=== PATIENT | male | born 2000 | race Asian ===

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

== ENCOUNTER 2021-07-18 13:42 | Emergency (ER) | payer SELFPAY ==
--- NOTE | 2021-07-18 15:26 | RAD REPORT ---
EXAM DESCRIPTION: RAD - Ankle Left 2 View - 07/18/2021 3:21 pm CLINICAL HISTORY: PAIN COMPARISON: Ankle Left 3 View dated 04/17/2016 FINDINGS: Moderate soft tissue swelling is seen along the lateral malleolus. A tiny bony avulsion fr agment is suspected inferior to the lateral malleolus. No dislocation.
--- NOTE | 2021-07-18 15:54 | EDPHYS ---
Physician Documentation [facility] Name: Farzad Thompson Age: 21 yrs Sex: Male : 2000 Arrival Date: 07/18/2021 Time: 13:44 Bed 11 Private MD: ED Physician Nelson Gresham HPI: 07/18 15:20 This 21 yrs old Male presents to ER via Wheelchair with complaints of Ankle jr8 Injury. 15:20 Onset: The symptoms/episode began/occurred acutely, today. Associated signs and jr8 symptoms: The patient has no apparent associated signs or symptoms. Modifying factors: The symptoms are alleviated by nothing, the symptoms are aggravated by weight bearing, movement. Severity of symptoms: At their worst the symptoms were moderate, in the emergency department the symptoms are unchanged. The patient has not experienced similar symptoms in the past. The patient has not recently seen a physician. Patient stated that he was running and jumped. Caused him to roll his left ankle. Had immediate swelling and bruising post incident . Historical: - Allergies: 14:17 No Known Allergies; ld1 - Home Meds: 14:17 None [Active]; ld1 - PMHx: 14:17 None; ld1 - PSHx: 14:17 None; ld1 - Immunization history:: Adult Immunizations up to date, Client reports having NOT received the Covid vaccine. - Social history:: Smoking status: Patient denies any tobacco usage or history of. Patient uses alcohol, but reports only rare drinking. street drugs, marijuana. ROS: 15:20 Eyes: Negative for injury, pain, redness, and discharge, ENT: Negative for injury, jr8 pain, and discharge, Neck: Negative for injury, pain, and swelling, Cardiovascular: Negative for chest pain, palpitations, and edema, Respiratory: Negative for shortness of breath, cough, wheezing, and pleuritic chest pain, Abdomen/GI: Negative for abdominal pain, nausea, vomiting, diarrhea, and constipation, Back: Negative for injury and pain, Skin: Negative for injury, rash, and discoloration, Neuro: Negative for headache, weakness, numbness, tingling, and seizure. 15:20 MS/extremity: Positive for decreased range of motion, ecchymosis, pain, swelling, tenderness, of the left lateral ankle. Exam: 15:20 Constitutional: This is a well developed, well nourished patient who is awake, alert, jr8 and in no acute distress. Cardiovascular: Regular rate and rhythm with a normal S1 and S2. No gallops, murmurs, or rubs. Normal PMI, no JVD. No pulse deficits. Respiratory: Lungs have equal breath sounds bilaterally, clear to auscultation and percussion. No rales, rhonchi or wheezes noted. No increased work of breathing, no retractions or nasal flaring. Skin: Warm, dry with normal turgor. Normal color with no rashes, no lesions, and no evidence of cellulitis. Neuro: Awake and alert, GCS 15, oriented to person, place, time, and situation. Cranial nerves II-XII grossly intact. Motor strength 5/5 in all extremities. Sensory grossly intact. 15:20 Musculoskeletal/extremity: Extremities: grossly normal except: noted in the left ankle: Patient has swelling, bruising, and tenderness to the lateral malleolus of his left ankle. Pain with ROM present. Decreased flexion and extension present secondary to pain. Sensation intact with 2+ radial pulses present. Remained of extremities unremarkable . Vital Signs: 14:16 BP 112 / 73; Pulse 69; Resp 18; Temp 98.6(O); Pulse Ox 98% on R/A; Weight 88.45 kg; ld1 Height 6 ft. 3 in. (190.50 cm); Pain 9/10; 16:20 BP 112 / 73; Pulse 69; Resp 18; ll1 14:16 Body Mass Index 24.37 (88.45 kg, 190.50 cm) ld1 Procedures: 15:52 Splinting: Splint applied to left leg using Ortho 3D boot, applied by nurse. Examined jr8 by me, post splint application: neurovascular intact, 2+ distal pulses palpable, brisk capillary refill noted, Patient tolerated well. Crutch training provided to patient and/or family. Return demonstration given. MDM: 15:06 Patient medically screened. jr8 15:52 Data reviewed: vital signs, nurses notes, radiologic studies, plain films. Data jr8 interpreted: Pulse oximetry: on room air is 98 %. Interpretation: normal. Counseling: I had a detailed discussion with the patient and/or guardian regarding: the historical points, exam findings, and any diagnostic results supporting the discharge/admit diagnosis, radiology results, the need for outpatient follow up, a orthopedic surgeon, to return to the emergency department if symptoms worsen or persist or if there are any questions or concerns that arise at home. 07/18 14:16 Order name: XRAY Ankle LEFT 2 view; Complete Time: 15:30 ld1 07/18 15:31 Order name: Misc. Order: Ortho Boot with crutches; Complete Time: 16:09 jr8 07/18 15:52 Order name: Crutches; Complete Time: 16:09 jr8 Administered Medications: No medications were administered Disposition: 17:35 Co-signature as Attending Physician, Nelson Gresham MD I agree with the assessment and rn plan of care. Attestation: The patient's history, exam findings, diagnostics, and a summary of any interventions or procedures was reviewed in detail with Axel FLORES. Disposition Summary: 07/18/21 15:53 Discharge Ordered Location: Home jr8 Problem: new jr8 Symptoms: have improved jr8 Condition: Stable jr8 Diagnosis - Sprain of ankle jr8 - Avulsion fracture lateral malleolus jr8 Followup: jr8 - With: Adam Dumont MD - When: 5 - 6 days - Reason: Recheck today's complaints, Continuance of care, Re-evaluation by your physician Discharge Instructions: - Discharge Summary Sheet jr8 - Ankle Fracture jr8 - Ankle Sprain jr8 Forms: - Medication Reconciliation Form jr8 - Thank You Letter jr8 - Antibiotic Education jr8 - Prescription Opioid Use jr8 Signatures: Dispatcher [employer] EDMS Nelson Gresham MD MD rn Roszak, Josh, PA PA jr8 Barb Rodriguez RN RN ld1 Corrections: (The following items were deleted from the chart) 14:18 14:17 Allergies: Aspirin; ld1 ld1
--- NOTE | 2021-07-18 15:54 | ER ---
Nurse's Notes [facility] Name: Farzad Thompson Age: 21 yrs Sex: Male : 2000 Arrival Date: 07/18/2021 Time: 13:44 Bed 11 Private MD: Diagnosis: Sprain of ankle;Avulsion fracture lateral malleolus Presentation: 07/18 14:16 Chief complaint: Patient states: I was running up my driveway last night, I rolled my ld1 left ankle. I heard a loud pop. Coronavirus screen: At this time, the client does not indicate any symptoms associated with coronavirus-19. Ebola Screen: No symptoms or risks identified at this time. Initial Sepsis Screen: Does the patient meet any 2 criteria? No. Patient's initial sepsis screen is negative. Does the patient have a suspected source of infection? No. Patient's initial sepsis screen is negative. Risk Assessment: Do you want to hurt yourself or someone else? Patient reports no desire to harm self or others. 14:16 Method Of Arrival: Wheelchair ld1 14:16 Acuity: MONCHO 4 ld1 14:16 Onset of symptoms was July 18, 2021. ld1 Triage Assessment: 14:17 General: Appears in no apparent distress. comfortable, Behavior is calm, cooperative, ld1 appropriate for age. Pain: Complains of pain in left lateral ankle, left Achilles, left medial ankle and anterior aspect of left ankle Pain does not radiate. Pain currently is 8 out of 10 on a pain scale. Quality of pain is described as throbbing, Pain began 1 day ago. Is continuous. EENT: No deficits noted. Neuro: Level of Consciousness is awake, alert, obeys commands, Oriented to person, place, time, situation, Appropriate for age. Cardiovascular: Capillary refill < 3 seconds Patient's skin is warm and dry. Respiratory: Airway is patent Respiratory effort is even, unlabored, Respiratory pattern is regular, symmetrical. GI: Abdomen is flat, non-distended. : No signs and/or symptoms were reported regarding the genitourinary system. Derm: No signs and/or symptoms reported regarding the dermatologic system. Musculoskeletal: Reports pain in left lateral ankle, left Achilles, left medial ankle and anterior aspect of left ankle. Historical: - Allergies: 14:17 No Known Allergies; ld1 - Home Meds: 14:17 None [Active]; ld1 - PMHx: 14:17 None; ld1 - PSHx: 14:17 None; ld1 - Immunization history:: Adult Immunizations up to date, Client reports having NOT received the Covid vaccine. - Social history:: Smoking status: Patient denies any tobacco usage or history of. Patient uses alcohol, but reports only rare drinking. street drugs, marijuana. Screenin:10 Abuse screen: Denies threats or abuse. Nutritional screening: No deficits noted. ll1 Tuberculosis screening: No symptoms or risk factors identified. Fall Risk Fall in past 12 months (25 points). Gait- Impaired (20 pts.). Total Ahumada Fall Scale indicates High Risk Score (45 or more points). Fall prevention measures have been instituted. Side Rails Up X 2 Placed Close to Nursing Station Frequent Obs/Assessments Occuring As available patient and family educated on Fall Prevention Program and Strategies. Assessment: 15:10 Reassessment: No changes from previously documented assessment. Patient and/or family ll1 updated on plan of care and expected duration. Pain level reassessed. Patient is alert, oriented x 3, equal unlabored respirations, skin warm/dry/pink. 16:10 Reassessment: No changes from previously documented assessment. Patient and/or family ll1 updated on plan of care and expected duration. Pain level reassessed. Patient is alert, oriented x 3, equal unlabored respirations, skin warm/dry/pink. Vital Signs: 14:16 BP 112 / 73; Pulse 69; Resp 18; Temp 98.6(O); Pulse Ox 98% on R/A; Weight 88.45 kg; ld1 Height 6 ft. 3 in. (190.50 cm); Pain 9/10; 16:20 BP 112 / 73; Pulse 69; Resp 18; ll1 14:16 Body Mass Index 24.37 (88.45 kg, 190.50 cm) ld1 ED Course: 13:44 Patient arrived in ED. ds1 14:17 Triage completed. ld1 14:17 Arm band placed on right wrist. ld1 15:06 Axel Badillo PA is PHCP. jr8 15:06 Nelson Gresham MD is Attending Physician. jr8 15:10 Ghada Rodriguez RN is Primary Nurse. ll1 15:10 Patient placed in an exam room, on a stretcher. ll1 15:10 Patient has correct armband on for positive identification. Bed in low position. Call ll1 light in reach. Side rails up X 1. Cardiac monitoring not applicable on this patient. 15:20 XRAY Ankle LEFT 2 view In Process Unspecified. EDDC 15:52 Adam Dumont MD is Referral Physician. jr8 16:20 No provider procedures requiring assistance completed. Patient did not have IV access ll1 during this emergency room visit. Administered Medications: No medications were administered Outcome: 15:53 Discharge ordered by MD. jr8 16:20 Patient left the ED. ll1 16:20 Discharged to home ambulatory. ll1 16:20 Condition: stable 16:20 Discharge instructions given to patient, Instructed on discharge instructions, follow up and referral plans. crutch walking, Demonstrated understanding of instructions, follow-up care, crutch walking. Signatures: Dispatcher [employer] [facility] MujicaIsabella 1 Axel Badillo PA PA jr8 Ghada Rodriguez, ERIKA RN ll1 Barb Rodriguez RN RN ld1 Corrections: (The following items were deleted from the chart) 14:18 14:17 Allergies: Aspirin; ld1 ld1 16:33 16:32 BP 112 / 73; Pulse 69bpm; Resp 18bpm; ll1 ll1
[2021-07-18 16:32] VITALS: BP 112/73; TEMP 98.6; O2SAT 98
== END 2021-07-18 16:20 | disposition home or self-care (01) ==
LOC: ER 13:42
DX: S82.62XA Displaced fracture of lateral malleolus of left fibula, initial encounter for closed fracture (principal); S93.402A Sprain of unspecified ligament of left ankle, initial encounter; X58.XXXA Exposure to other specified factors, initial encounter; Y93.02 Activity, running
CPT/HCPCS: 99283

== ENCOUNTER 2021-08-06 20:36 | Emergency (ER) | payer SELFPAY ==
[2021-08-06] MEDS ORDERED: NA CHLORIDE 0.9% 1,000 ML ONE (20:55)
[2021-08-06 21:13] LABS: Urine Blood Negative (Negative); Urine Glucose Negative (Negative); Urine Protein Negative (Negative); Urine Specific Gravity >=1.030 (1.005-1.030)
[2021-08-06] MEDS ORDERED: NA CHLORIDE 0.9% 50 ML ONE (21:17)
[2021-08-06] MEDS ORDERED: THIAMINE 200 MG/2 ML INJ ONE (21:17)
[2021-08-06 21:33] LABS: Absolute Lymphocytes (CBC) 2.3 K/uL (0.7-4.9); Basophils % 0.4 % (0-1.3); Hematocrit 41.8 % (39.6-49.0); Lymphocytes % 42.1 % (15.3-44.8); MPV 8.1 fL (7.6-11.3); RBC Red Blood Cell Count 4.91 M/uL (4.33-5.43)
[2021-08-06 21:52] LABS: ALT/SGPT 70 U/L (12-78); AST/SGOT 29 U/L (15-37); Albumin 4.2 g/dL (3.4-5.0); Alkaline Phosphatase 50 U/L (45-117); BUN Blood Urea Nitrogen 13 mg/dL (7-18); Bicarbonate 33 mmol/L (21-32); Bilirubin Direct 0.2 mg/dL (0-0.2); Bilirubin Total 0.7 mg/dL (0.2-1.0); Glucose Level 112 mg/dL (74-106); Potassium 3.5 mmol/L (3.5-5.1); Protein, Total 7.7 g/dL (6.4-8.2); Sodium Level 143 mmol/L (136-145)
[2021-08-06 22:42] LABS: Benzodiazepines POSITIVE (NEGATIVE); Cocaine NEGATIVE (NEGATIVE); METHAMPHETAM NEGATIVE (NEGATIVE); Opiates NEGATIVE (NEGATIVE); Phencyclidine NEGATIVE (NEGATIVE); THC Cannibis POSITIVE (NEGATIVE)
[2021-08-06 22:43] LABS: Barbiturates NEGATIVE (NEGATIVE); Methadone NEGATIVE (NEGATIVE)
--- NOTE | 2021-08-07 00:37 | EDPHYS ---
Physician Documentation [facility] Name: Farzad Thompson Age: 21 yrs Sex: Male : 2000 Arrival Date: 08/06/2021 Time: 20:38 Bed 3 Private MD: ED Physician Joshua Cooper HPI: 08/06 20:55 This 21 yrs old Male presents to ER via Ambulatory with complaints of ams from fatuma oxycodone and bars. 20:55 ams, slurred speech. The patient presents with confusion, decreased mental status. fatuma Onset: The symptoms/episode began/occurred just prior to arrival. Possible causes: drug use, benzodiazepines, narcotics. Associated signs and symptoms: Pertinent positives: confusion. Onset: The symptoms/episode began/occurred today. Current symptoms: In the emergency department the patient's symptoms are unchanged from the initial presentation. Patient's baseline: Neuro: alert and fully oriented. Historical: - Allergies: 20:42 No Known Allergies; da3 - PMHx: 20:42 None; da3 - Immunization history:: Client reports having NOT received the Covid vaccine. - Social history:: Smoking status: unknown. - Family history:: not pertinent. ROS: 20:55 Constitutional: Negative for fever, chills, and weight loss, Eyes: Negative for injury, fatuma pain, redness, and discharge, ENT: Negative for injury, pain, and discharge, Neck: Negative for injury, pain, and swelling, Cardiovascular: Negative for chest pain, palpitations, and edema, Respiratory: Negative for shortness of breath, cough, wheezing, and pleuritic chest pain, Abdomen/GI: Negative for abdominal pain, nausea, vomiting, diarrhea, and constipation, Back: Negative for injury and pain, : Negative for injury, bleeding, discharge, and swelling, MS/Extremity: Negative for injury and deformity, Skin: Negative for injury, rash, and discoloration, Psych: Negative for depression, anxiety, suicide ideation, homicidal ideation, and hallucinations, Allergy/Immunology: Negative for hives, rash, and allergies, Endocrine: Negative for neck swelling, polydipsia, polyuria, polyphagia, and marked weight changes, Hematologic/Lymphatic: Negative for swollen nodes, abnormal bleeding, and unusual bruising. 20:55 Neuro: Positive for altered mental status, speech changes, weakness. Exam: 20:55 Constitutional: This is a well developed, well nourished patient who is awake, alert, fatuma and in no acute distress. Head/Face: Normocephalic, atraumatic. Eyes: Pupils equal round and reactive to light, extra-ocular motions intact. Lids and lashes normal. Conjunctiva and sclera are non-icteric and not injected. Cornea within normal limits. Periorbital areas with no swelling, redness, or edema. ENT: Nares patent. No nasal discharge, no septal abnormalities noted. Tympanic membranes are normal and external auditory canals are clear. Oropharynx with no redness, swelling, or masses, exudates, or evidence of obstruction, uvula midline. Mucous membranes moist. Neck: Trachea midline, no thyromegaly or masses palpated, and no cervical lymphadenopathy. Supple, full range of motion without nuchal rigidity, or vertebral point tenderness. No Meningismus. Chest/axilla: Normal chest wall appearance and motion. Nontender with no deformity. No lesions are appreciated. Cardiovascular: Regular rate and rhythm with a normal S1 and S2. No gallops, murmurs, or rubs. Normal PMI, no JVD. No pulse deficits. Respiratory: Lungs have equal breath sounds bilaterally, clear to auscultation and percussion. No rales, rhonchi or wheezes noted. No increased work of breathing, no retractions or nasal flaring. Abdomen/GI: Soft, non-tender, with normal bowel sounds. No distension or tympany. No guarding or rebound. No evidence of tenderness throughout. Back: No spinal tenderness. No costovertebral tenderness. Full range of motion. Skin: Warm, dry with normal turgor. Normal color with no rashes, no lesions, and no evidence of cellulitis. MS/ Extremity: Pulses equal, no cyanosis. Neurovascular intact. Full, normal range of motion. Psych: Awake, alert, with orientation to person, place and time. Behavior, mood, and affect are within normal limits. 20:55 Neuro: Orientation: to person, place, Not oriented to time, situation, Mentation: slow to respond, confused, Memory: unable to test, Cranial nerves: is grossly normal based on the patient's age, Cerebellar function: unable to test, Motor: moves all fours, unable to test, Sensation: no obvious gross deficits, Gait: not tested. Deep tendon reflexes are 2+ (normal) in the bilateral brachioradialis, bicep, tricep and patellar and Achilles tendons, seizure activity, is not displayed by the patient. 21:02 ECG was reviewed by the Attending Physician. fatuma Vital Signs: 20:38 BP 109 / 72; Pulse 83; Resp 16; Temp 98; Pulse Ox 95% on R/A; Weight 74.84 kg; Height 6 da3 ft. 3 in. (190.50 cm); 21:09 BP 130 / 92; Pulse 75; Resp 26; Pulse Ox 99% on R/A; tw5 21:59 BP 98 / 62; Pulse 81; Resp 22; Pulse Ox 97% on R/A; tw5 22:30 BP 114 / 68; Pulse 75; Resp 22; Pulse Ox 99% on R/A; lp1 23:32 BP 114 / 56; Pulse 62; Resp 22; Pulse Ox 99% on R/A; lp1 08/07 00:41 BP 136 / 67; Pulse 52; Resp 13; Pulse Ox 100% on R/A; tw5 01:53 BP 126 / 71; Pulse 77; Resp 20; Pulse Ox 100% on R/A; lp1 08/06 20:38 Body Mass Index 20.62 (74.84 kg, 190.50 cm) da3 Carmen Coma Score: 01:54 Eye Response: spontaneous(4). Verbal Response: oriented(5). Motor Response: obeys lp1 commands(6). Total: 15. MDM: 08/06 20:48 Patient medically screened. fatuma 20:58 Differential Diagnosis altered mental status. Differential Diagnosis: hypoglycemia, fatuma overdose, volume depletion. Data reviewed: vital signs, nurses notes, lab test result(s), EKG. Data interpreted: monitor car operator: rate is 83 beats/min, rhythm is regular, Pulse oximetry: on room air is 95 %. Test interpretation: by ED physician or midlevel provider: ECG. Counseling: I had a detailed discussion with the patient and/or guardian regarding: the historical points, exam findings, and any diagnostic results supporting the discharge/admit diagnosis, lab results. 08/06 20:49 Order name: Acetaminophen; Complete Time: 22:12 fatuma 08/06 20:49 Order name: Basic Metabolic Panel; Complete Time: 22:12 fatuma 08/06 20:49 Order name: CBC with Diff; Complete Time: 22:12 [facility] 08/06 20:49 Order name: ETOH Level; Complete Time: 23:26 [facility] 08/06 20:49 Order name: Hepatic Function; Complete Time: 22:12 [facility] 08/06 20:49 Order name: PT-INR; Complete Time: 21:55 [facility] 08/06 20:49 Order name: Ptt, Activated; Complete Time: 21:55 [facility] 08/06 20:49 Order name: Salicylate; Complete Time: 22:12 [facility] 08/06 20:49 Order name: Urine Drug Screen; Complete Time: 23:26 [facility] 08/06 21:13 Order name: Urine Dipstick-Ancillary; Complete Time: 21:55 [facility] 08/06 21:42 Order name: Glucose, Ancillary Testing; Complete Time: 21:55 [facility] 08/07 00:38 Order name: COVID-19 SARS RT PCR (Document "Date of Onset" if Symptomatic) [facility] 08/06 20:49 Order name: EKG; Complete Time: 20:50 [facility] 08/06 20:49 Order name: EKG - Nurse/Tech; Complete Time: 20:58 [facility] 08/06 20:49 Order name: IV Saline Lock; Complete Time: 20:58 [facility] 08/06 20:49 Order name: Labs collected and sent; Complete Time: 20:58 [facility] 08/06 20:49 Order name: Suicide Screening ([place]); Complete Time: 21:27 [facility] 08/06 20:49 Order name: Urine Dipstick-Ancillary (obtain specimen); Complete Time: 21:12 [facility] 08/06 21:00 Order name: Blood Glucose Level; Complete Time: 21:33 [facility] 08/06 21:00 Order name: Seizure Precautions; Complete Time: 21:12 [facility] 08/07 00:51 Order name: CONS Physician Consult EDMS EC:02 Rate is 70 beats/min. Rhythm is regular. QRS [place] is Normal. [place] interval is normal. QRS fatuma interval is normal. QT interval is normal. No Q waves. T waves are Normal. No ST changes noted. Clinical impression: Normal ECG and No evidence of ischemia. Interpreted by me. Reviewed by me. Administered Medications: 20:58 Drug: NS 0.9% 1000 ml Route: IV; Rate: 1 bolus; Site: right antecubital; 1 08/07 00:42 Follow up: Response: No adverse reaction; IV Status: Completed infusion tw5 08/06 21:18 Drug: Thiamine 100 mg Route: IV; Rate: per protocol; Site: right antecubital; tw5 08/07 00:42 Follow up: Response: No adverse reaction; IV Status: Completed infusion tw5 Disposition Summary: 08/07/21 01:46 Discharge Ordered Location: Home(08/07/21 01:46) fatuma Problem: new(08/07/21:46) fatuma Symptoms: have improved(08/07/21:46) fatuma Condition: Stable(08/07/21:46) fatuma Diagnosis - Adverse effect of benzodiazepines(08/07/21:46) fatuma - Adverse effect of other narcotics(08/07/21:46) fatuma - Abuse of other non-psychoactive substances(08/07/21:46) fatuma Followup: fatuma - With: Private Physician - When: 2 - 3 days - Reason: Recheck today's complaints, Continuance of care, Re-evaluation by your physician Followup: fatuma - With: - When: 2 - 3 days - Reason: Recheck today's complaints, Continuance of care, Re-evaluation by your physician Discharge Instructions: - Discharge Summary Sheet fatuma - Finding Treatment for Addiction fatuma - Substance Use Disorder fatuma - Supporting Someone With an Addiction fatuma - Substance Use Disorder and Mental Illness fatuma Forms: - Medication Reconciliation Form fatuma - Thank You Letter fatuma - Antibiotic Education fatuma - Prescription Opioid Use fatuma Signatures: Dispatcher [employer] EDJoshua Salas MD MD cha Pena, Laura RN RN lp1 Aryan Lowe RN RN da3 Rebecca Duran tw5 Corrections: (The following items were deleted from the chart) 00:36 Observation fautma fatuma :45 00:36 José Luis Kay fatuma fatuma 00:36 Telemetry/MedSurg (observation) fatuma fatuma 00:36 Fair fatuma fatuma 00:36 new fatuma fatuma 00:36 have improved fatuma fatuma 00:36 Standard fatuma fatuma :45 00:36 fatuma fatuma :45 00:36 Adjustment disorder with depressed mood fatuma fatuma 00:36 Altered mental status, unspecified fatuma fatuma 00:36 Adverse effect of benzodiazepines fatuma fatuma 01:45 00:36 Adverse effect of other narcotics - Oxycodone [facility] :45 00:36 Abuse of other non-psychoactive substances [facility] fatuma
--- NOTE | 2021-08-07 00:37 | ER ---
Nurse's Notes [facility] Name: Farzad Thompson Age: 21 yrs Sex: Male : 2000 Arrival Date: 08/06/2021 Time: 20:38 Bed 3 Private MD: Diagnosis: Adverse effect of benzodiazepines;Adverse effect of other narcotics;Abuse of other non-psychoactive substances Presentation: 08/06 20:38 Chief complaint:. Chief complaint: Parent and/or Guardian states: patient very sleepy da3 and not arousal family feels OD. Coronavirus screen: Vaccine status: Patient reports being unvaccinated. Ebola Screen: No symptoms or risks identified at this time. Initial Sepsis Screen: Does the patient meet any 2 criteria? No. Patient's initial sepsis screen is negative. Does the patient have a suspected source of infection? No. Patient's initial sepsis screen is negative. Risk Assessment: Do you want to hurt yourself or someone else? Unable to obtain. Onset of symptoms was August 06, 2021. 20:38 Method Of Arrival: Ambulatory da3 20:38 Acuity: MONCHO 3 da3 Triage Assessment: 20:42 General: Appears distressed, slender, Behavior is crying, drowsy, quiet. Pain: Denies da3 pain. Historical: - Allergies: 20:42 No Known Allergies; da3 - PMHx: 20:42 None; da3 - Immunization history:: Client reports having NOT received the Covid vaccine. - Social history:: Smoking status: unknown. - Family history:: not pertinent. Screenin:09 Abuse screen: Denies threats or abuse. Denies injuries from another. Nutritional tw5 screening: No deficits noted. Tuberculosis screening: No symptoms or risk factors identified. Fall Risk IV access (20 points). Ambulatory Aid- None/Bed Rest/Nurse Assist (0 pts). Gait- Impaired (20 pts.). Mental Status- Overestimates/Forgets Limitations (15 pts.). Assessment: 21:07 General: Appears unkempt, Behavior is drowsy, restless. General: Patient states that he lp1 took pills to " Have a good a time." Patient denies trying to hurt himself. However in the next sentence patient with teary eyes stated "I am so depressed". Pain: Denies pain. Neuro: Level of Consciousness is confused. Cardiovascular: Heart tones S1 S2 present Capillary refill < 3 seconds is brisk in left in bilateral Rhythm is sinus rhythm. Respiratory: Airway is patent Trachea midline Respiratory effort is even, unlabored, Respiratory pattern is regular. 21:09 : Urine is clear. Musculoskeletal: Circulation, motion, and sensation intact. tw5 21:35 General: Behavior is cooperative, drowsy. tw5 21:59 Reassessment: Patient appears in no apparent distress at this time. No changes from tw5 previously documented assessment. 22:34 Reassessment: Patient's mother, Katt, at bedside; patient resting, eyes closed, lp1 respirations even, unlabored; Mother left phone number, [phone]. 22:45 Reassessment: Dr. Cooper at bedside to reassess patient, patient arousable with lp1 voice, continues to appear drowsy, speech is slow, intermittent slurring. 08/07 00:41 Reassessment: Patient appears in no apparent distress at this time. No changes from tw5 previously documented assessment. Patient and/or family updated on plan of care and expected duration. Pain level reassessed. Patient is alert, oriented x 3, equal unlabored respirations, skin warm/dry/pink. 01:06 Reassessment: MARK Atkinson at bedside to assess patient and discuss plan of care; lp1 Patient appears drowsy, speech is slurred, slow; Patient up to WC, talking to mom on phone at nurses station. 01:56 Reassessment: Mother at bedside to discuss plan of care with Dr. Cooper; Plan to lp1 discharge patient home, patient agrees for plan for rehab; Appears more alert, continues to cry, emotional, cooperative, obeys commands. Neuro: Gait is stable while walking out with mother for discharge . Vital Signs: 08/06 20:38 BP 109 / 72; Pulse 83; Resp 16; Temp 98; Pulse Ox 95% on R/A; Weight 74.84 kg; Height 6 da3 ft. 3 in. (190.50 cm); 21:09 BP 130 / 92; Pulse 75; Resp 26; Pulse Ox 99% on R/A; tw5 21:59 BP 98 / 62; Pulse 81; Resp 22; Pulse Ox 97% on R/A; tw5 22:30 BP 114 / 68; Pulse 75; Resp 22; Pulse Ox 99% on R/A; lp1 23:32 BP 114 / 56; Pulse 62; Resp 22; Pulse Ox 99% on R/A; lp1 08/07 00:41 BP 136 / 67; Pulse 52; Resp 13; Pulse Ox 100% on R/A; tw5 01:53 BP 126 / 71; Pulse 77; Resp 20; Pulse Ox 100% on R/A; lp1 08/06 20:38 Body Mass Index 20.62 (74.84 kg, 190.50 cm) da3 Carmen Coma Score: 01:54 Eye Response: spontaneous(4). Verbal Response: oriented(5). Motor Response: obeys lp1 commands(6). Total: 15. ED Course: 08/06 20:38 Patient arrived in ED. da3 20:42 Triage completed. da3 20:42 Arm band placed on left wrist. da3 20:48 Joshua Cooper MD is Attending Physician. [facility] 21:07 Bre Bishop, RN is Primary Nurse. lp1 21:09 Patient has correct armband on for positive identification. Placed in gown. Bed in low tw5 position. Side rails up X2. Adult w/ patient. steam turbine operator on. Pulse ox on. NIBP on. Door closed. Noise minimized. Moved to private room. curtain open to nurses station. Warm blanket given. Pillow given. Verbal reassurance given. Assisted with urinal. 21:09 Initial lab(s) drawn, by me, sent to lab. Urine collected: clean catch specimen, clear, tw5 EKG done. Inserted saline lock: 18 gauge in right antecubital area, using aseptic technique. Blood collected. 21:12 Acetaminophen Sent. tw5 21:12 Basic Metabolic Panel Sent. tw5 21:12 CBC with Diff Sent. tw5 21:12 ETOH Level Sent. tw5 21:12 Hepatic Function Sent. tw5 21:12 PT-INR Sent. tw5 21:12 Ptt, Activated Sent. tw5 21:12 Salicylate Sent. tw5 21:12 Urine Drug Screen Sent. tw5 21:33 Acetaminophen Sent. tw5 21:33 Basic Metabolic Panel Sent. tw5 21:33 CBC with Diff Sent. tw5 21:33 ETOH Level Sent. tw5 21:33 Hepatic Function Sent. tw5 21:33 PT-INR Sent. tw5 21:33 Ptt, Activated Sent. tw5 21:33 Salicylate Sent. tw5 21:33 Urine Drug Screen Sent. tw5 21:35 Appears to be sleeping. tw08/07 00:33 José Luis Kay MD is Hospitalizing Provider. fatuma 00:41 Appears to be sleeping. Awaiting bed assignment. tw5 00:43 COVID swab sent to lab. tw 01:14 No provider procedures requiring assistance completed. lp1 01:45 Leonardo Brown MD is Referral Physician. fatuma 01:56 IV discontinued, No redness/swelling at site. Pressure dressing applied. lp1 Administered Medications: 08/06 20:58 Drug: NS 0.9% 1000 ml Route: IV; Rate: 1 bolus; Site: right antecubital; lp1 08/07 00:42 Follow up: Response: No adverse reaction; IV Status: Completed infusion tw5 08/06 21:18 Drug: Thiamine 100 mg Route: IV; Rate: per protocol; Site: right antecubital; tw5 08/07 00:42 Follow up: Response: No adverse reaction; IV Status: Completed infusion tw5 Output: 01:30 Urine: 450ml (Voided); Total: 450ml. lp1 Outcome: 00:36 Decision to Hospitalize by Provider. fatuma 01:46 Discharge ordered by . fatuma 01:57 Discharged to home ambulatory, with family. 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 Demonstrated understanding of instructions, follow-up care. 01:57 Patient left the ED. lp1 Signatures: Joshua Cooper MD MD cha Pena, Laura, RN RN lp1 Aryan Lowe, RN RN Rebecca Sahu 5 Corrections: (The following items were deleted from the chart) 08/06 21:10 21:07 General: Patient states that he took pills to " Have a good . lp1 08/07:14 01:06 Reassessment: AMRK Atkinson at bedside to assess patient and discuss plan of lp1 care; Patient appears drowsy, lp1
[2021-08-07 02:12] VITALS: TEMP 98
[2021-08-07 02:20] VITALS: O2SAT 100
[2021-08-07 02:22] VITALS: BP 126/71
--- NOTE | 2021-08-07 12:28 | EKG ---
Test Date: 2021-08-06 Test Time: 20:58:30 Ct Technician: BAMBI MEASUREMENT RESULTS: Intervals: Rate: 70 MA: 200 QRSD: 92 QT: 402 QTc: 434 [place]: P: 64 MA: 200 QRS: 61 T: 49 INTERPRETIVE STATEMENTS: Normal sinus rhythm Normal ECG Compared to ECG 10/16/2020 12:44:30 Sinus bradycardia no longer present Electronically Signed On 08-07-21 12:25:47 REGULATORY AUDITOR by Billy Teran
== END 2021-08-07 01:57 | disposition home or self-care (01) ==
LOC: ER 20:36 → ERHOLD 08-07 00:50 → UNDOADMIN 08-07 00:50
DX: F55.8 Abuse of other non-psychoactive substances (principal); T42.4X5A Adverse effect of benzodiazepines, initial encounter; T40.605A Adverse effect of unspecified narcotics, initial encounter
CPT/HCPCS: 36415; 80048; 80076; 80307; 80320; 80329; 81003; 82947; 85025; 85610; 85730; 93005; 96365; 96366; 99284; J3411; J7030; U0003